=== PATIENT | female | born 1980 | race Caucasian/White ===

== ENCOUNTER → 2016-11-30 | Outpatient (CLI) | payer OTHER | LOC: EMI 11-23 13:00 | DX: G89.4 Chronic pain syndrome (principal); M54.5 Low back pain; M54.42 Lumbago with sciatica, left side; M54.40 Lumbago with sciatica, unspecified side; M54.41 Lumbago with sciatica, right side; J39.8 Other specified diseases of upper respiratory tract; M15.8 Other polyosteoarthritis; M79.1 Myalgia; N91.1 Secondary amenorrhea; R53.83 Other fatigue; M51.37 Other intervertebral disc degeneration, lumbosacral region | CPT/HCPCS: 72148 ==

== ENCOUNTER → 2021-04-21 | Outpatient (CLI) | payer BC, OTHER ==
[~2021-04-21] MED LIST: ACETAMINOPHEN500 M1 PO; DOCUSATE SODIU250 MG PO; IBU800 MG PO; KETOROLAC TROME10 MG PO; NEURONTIN800 MG PO; SUBOXONE 8 MG-1 EACH PO
[2021-04-21 10:30] LABS: HEMOGLOBIN 16.1 gm/dl (12.3-15.3); RED BLOOD COUNT 4.77 M/UL (4.00-5.10); WHITE BLOOD COUNT 14.1 K/UL (4.5-11.0)
== END ==
LOC: OPSV2 08:00
PROVIDERS: Obstetrics & Gynecology
DX: Z01.812 Encounter for preprocedural laboratory examination (principal); N85.7 Hematometra
CPT/HCPCS: 36415; 81001; 85025

== ENCOUNTER → 2021-04-24 | Day surgery (SDC) | payer BC, OTHER | END | disposition home or self-care (01) | LOC: OR 08:32 | DX: N94.6 Dysmenorrhea, unspecified (principal); N85.7 Hematometra; N85.2 Hypertrophy of uterus; F17.210 Nicotine dependence, cigarettes, uncomplicated; Z79.899 Other long term (current) drug therapy; Z20.822 Contact with and (suspected) exposure to COVID-19; Z98.51 Tubal ligation status; Z98.890 Other specified postprocedural states | CPT/HCPCS: C1769; J0690; J1100; J2001; J2250; J2270; J2405; J2704; J2710; J3010; J7120 ==